=== PATIENT | female | born 1970 | race Caucasian/White ===

== ENCOUNTER 2016-09-08 18:54 | Emergency (ER) | payer MEDICAID ==
[~2016-09-08] VITALS: Ht 162.6 cm; Wt 65.8 kg
[~2016-09-08 18:54] MED LIST: ACTOS15 MG; FERROUS SULFAT324 M2; GLIPIZIDE10 M2; GLUCAPHAGE PO; HUMALOG100 UNITS/ SUBQ; INSULIN; [UNRECOGNIZED DRUG - REMARK]
[2016-09-08 19:21] VITALS: BP 128/70
[2016-09-08] MEDS ORDERED: NOVOLOG100 U/ML SUBQ (19:31)
--- NOTE | 2016-09-08 19:36 | NUR ---
PATIENT AMBULATED TO BED 5.
--- NOTE | 2016-09-08 19:54 | NUR ---
PATIENT PRESENTS TO ED WITH BL EAR PAIN, SORE THROAT, AND HEADACHE FOR THE PAST WEEK . PT STATES SHE WAS GIVEN AMOXICILLIN THAT SHE STARTED TAKING SINCE LAST WEDNESDAY AND TOOK MOTRIN TODAY AT 1300 WHICH LEFT SYMPTOMS UNRELIEVED. PT HAS HX OF DMI AND IS INSULIN DEPENDENT . DENIES N/V/D; SKIN IS PINK/WARM/DRY; AAOX4 WITH EVEN AND STEADY GAIT; LUNGS CLEAR BL; HR EVEN AND REGULAR; PT DENIES ANY FEVER, CP OR SOB AT THIS TIME; PATIENT STATES PAIN OF 8/10 AT THIS TIME; VSS; PATIENT POSITIONED FOR COMFORT; HOB ELEVATED; BEDRAILS UP X2; BED DOWN. ER MD MADE AWARE OF PT STATUS.
--- NOTE | 2016-09-08 20:12 | NUR ---
Patient being evaluated by physician at bedside.
[2016-09-08] MEDS ORDERED: NACL 0.9% 1,000 ML IV ONE (20:35)
[2016-09-08 22:15] VITALS: BP 128/70
--- NOTE | 2016-09-08 22:16 | NUR ---
Patient discharged with v/s stable. Written and verbal after care instructions given and explained. Patient alert, oriented and verbalized understanding of instructions. Ambulatory with steady gait. All questions addressed prior to discharge. ID band removed. Patient advised to follow up with PMD. Rx of TYLENOL AND AURALGAN OTIC SOLUTION given. Patient educated on indication of medication including possible reaction and side effects. Opportunity to ask questions provided and answered.
== END 2016-09-08 22:16 | disposition home or self-care (01) ==
LOC: MED 18:54
PROC: 4A02X4Z Measurement of Cardiac Electrical Activity, External Approach (ICD-10-PCS; principal; 2016-09-08)
DX: J11.1 Influenza due to unidentified influenza virus with other respiratory manifestations (principal); H92.03 Otalgia, bilateral; R03.0 Elevated blood-pressure reading, without diagnosis of hypertension; E11.8 Type 2 diabetes mellitus with unspecified complications; Z79.4 Long term (current) use of insulin; Z32.02 Encounter for pregnancy test, result negative

== ENCOUNTER 2017-01-20 12:05 | Emergency (ER) | payer MEDICAID ==
[~2017-01-20] VITALS: Ht 162.6 cm; Wt 78.9 kg
[~2017-01-20 12:05] MED LIST changes: -ACTOS15 MG; -FERROUS SULFAT324 M2; -GLIPIZIDE10 M2; -GLUCAPHAGE PO; +HUM SUBQ; -HUMALOG100 UNITS/ SUBQ; +INSU100S45 SUBQ; -INSULIN; -[UNRECOGNIZED DRUG - REMARK]
[2017-01-20 12:49] VITALS: BP 118/60
--- NOTE | 2017-01-20 18:22 | NUR ---
Dr. Zavaleta evaluating patient.
--- NOTE | 2017-01-20 18:27 | NUR ---
PATIENT IS A 46 YO FEMALE BIB SELF FOR ABDOMINAL PAIN WITH NAUSEA, AWAKE AND ALERT ABLE TO AMBULATE.
[2017-01-20 18:45] VITALS: BP 118/60
--- NOTE | 2017-01-20 18:46 | NUR ---
Patient discharged with v/s stable. Written and verbal after care instructions given and explained. Patient alert, oriented and verbalized understanding of instructions. Ambulatory with steady gait. All questions addressed prior to discharge. ID band removed. Patient advised to follow up with PMD. Rx of CIPRO AND TRAMADOL given. Patient educated on indication of medication including possible reaction and side effects. Opportunity to ask questions provided and answered.
== END 2017-01-20 18:46 | disposition home or self-care (01) ==
LOC: MED 12:05
DX: R19.7 Diarrhea, unspecified (principal); E11.9 Type 2 diabetes mellitus without complications
CPT/HCPCS: 99283

== ENCOUNTER 2017-07-18 08:20 | Emergency (ER) | payer MEDICAID ==
[~2017-07-18] VITALS: Ht 157.5 cm; Wt 70.1 kg
[2017-07-18 08:28] VITALS: BP 139/81
--- NOTE | 2017-07-18 08:28 | NUR ---
Patient ambulated to bed 11 with family. RN evaluating patient at bedside.
--- NOTE | 2017-07-18 08:30 | NUR ---
Dr. Bae evaluating patient at bedside.
[2017-07-18] MEDS ORDERED: metroNIDAZOLE 500 MG/NS PREMIX 100 ML IV STA (08:38)
[2017-07-18] MEDS ORDERED: NACL 0.9% 1,000 ML IV SCH (08:38)
[2017-07-18] MEDS ORDERED: DIPHENOXYLATE /ATROPINE 2.5 MG TAB PO ONE (08:40)
[2017-07-18] MEDS ORDERED: KETOROLAC 30 MG/ML VIAL IVP ONE (08:40)
[2017-07-18] MEDS ORDERED: ONDANSETRON 4 MG/2 ML VIAL IVP ONE (08:40)
[2017-07-18] MEDS ORDERED: MORPHINE SULFATE 2 MG/ML SYR IVP ONE (08:40)
--- NOTE | 2017-07-18 08:42 | NUR ---
PATIENT PRESENTS TO ED WITH C/O DIARRHEA X 1 WK WITH ABDOMINAL PAIN 8/10; BLACK LOOSE STOOLS; DENIES N/V;HX OF DM;SKIN IS PINK/WARM/DRY; AAOX4 WITH EVEN AND STEADY GAIT; LUNGS CLEAR BL; HR EVEN AND REGULAR; PT DENIES ANY FEVER, CP, SOB, OR COUGH AT THIS TIME; PATIENT STATES PAIN OF 8/10 AT THIS TIME;PATIENT POSITIONED FOR COMFORT; HOB ELEVATED; BEDRAILS UP X2; BED DOWN.ALL MONITORS IN PLACED. ER MD MADE AWARE OF PT STATUS.
[2017-07-18 09:04] LABS: HEMATOCRIT 33.1 % (36-48); HEMOGLOBIN 10.2 g/dL (12.0-16.0); MEAN CORPUSCULAR HEMOGLOBIN 21 pg (27-31); MEAN CORPUSCULAR HGB CONC 31 g/dL (33-37); MEAN CORPUSCULAR VOLUME 68 fL (80-94); PLATELET COUNT (AUTO) 317 K/uL (140-450); RED BLOOD CELL COUNT(AUTO) 4.86 MIL/uL (4.20-5.40); RED CELL DISTRIBUTION WIDTH 16.6 % (11.6-13.7); WHITE BLOOD COUNT (AUTO) 6.5 K/uL (4.8-10.8)
--- NOTE | 2017-07-18 09:06 | NUR ---
PT VERBALIZES RELIEF FROM PAIN;5/10 PAIN SCALE;NO FACIAL GRIMMACING NOTED;WILL CONTINUE TO MONITOR.
[2017-07-18 09:20] LABS: ALBUMIN 3.9 g/dL (3.4-5.0); ANION GAP 7.6 (8-16); POTASSIUM 3.6 mmol/L (3.5-5.1); TOTAL BILIRUBIN 0.4 mg/dL (0.0-1.0)
[2017-07-18 09:23] LABS: BASOPHILS % (MANUAL) 0 % (0-2); CREATININE 0.6 mg/dL (0.6-1.3); EOSINOPHILS % (MANUAL) 6 % (0-4); LYMPHOCYTES % (MANUAL) 24 % (20-46); MONOCYTES % (MANUAL) 4 % (5-12)
[2017-07-18 09:26] LABS: BILIRUBIN,URINE NEGATIVE (NEGATIVE); BLOOD, URINE TRACE-I (NEGATIVE); COLOR,URINE YELLOW (YELLOW); LEUKOCYTE ESTERASE ,URINE TRACE (NEGATIVE); NITRITE, URINE NEGATIVE (NEGATIVE); PH,URINE 5.5 (5.0-9.0); UGLUCOSE 1+ (NEGATIVE)
--- NOTE | 2017-07-18 09:27 | NUR ---
PT CAN'T REMEMBER THE NAME AND DOSAGE OF INSULIN THAT SHE IS TAKING
[2017-07-18 09:30] LABS: APPEARANCE,URINE SLIGHTLY HAZY (CLEAR)
[2017-07-18] MEDS ORDERED: NACL 0.9% 1,000 ML IV ONE (09:30)
[2017-07-18 09:41] LABS: RBC,URINE 0-5 (RARE) /HPF (0-5); YEAST,URINE Few /HPF (None Seen)
--- NOTE | 2017-07-18 09:58 | NUR ---
AAO PT BACK FROM CT, NO ACUTE DISTRESS NOTED, RESTING COMFORTABLY, PLACED BACK ON MONITOR, AWAITING ADMITTING ORDERS, WILL CONTINUE TO MONITOR
--- NOTE | 2017-07-18 10:36 | NUR ---
awaiting for bed assignment for adm.
--- NOTE | 2017-07-18 10:44 | NUR ---
Dr. Marino evaluating patient at bedside.
--- NOTE | 2017-07-18 11:00 | NUR ---
Patient does not wish to proceed with medical care recommended by DR MEDRANO. Patient given information related to possible complications, up to and including , which could occur as a result of leaving hospital at this time. Patient verbalizes understanding of risks involved leaving against medical advice. Patient has signed AMA form.
[2017-07-18 11:05] VITALS: BP 134/59
--- NOTE | 2017-07-18 11:05 | NUR ---
Patient discharged with v/s stable. Written and verbal after care instructions given and explained. Patient alert, oriented and verbalized understanding of instructions. Ambulatory with steady gait. All questions addressed prior to discharge. ID band removed. Patient advised to follow up with PMD. Rx of IMODIUM given. Patient educated on indication of medication including possible reaction and side effects. Opportunity to ask questions provided and answered.
== END 2017-07-18 11:05 | disposition home or self-care (01) ==
LOC: MED 08:20
DX: E87.1 Hypo-osmolality and hyponatremia (principal); E86.0 Dehydration; R19.7 Diarrhea, unspecified; E11.9 Type 2 diabetes mellitus without complications; Z79.4 Long term (current) use of insulin
CPT/HCPCS: 36415; 74176; 80053; 81001; 81025; 82150; 82948; 83690; 84703; 85025; 87086; 96361; 96365; 96375; 99285; J1885; J2270; J2405; J3490; J7030

== ENCOUNTER 2017-10-15 14:13 | Emergency (ER) | payer MEDICAID ==
[~2017-10-15] VITALS: Ht 162.6 cm; Wt 68.2 kg
[2017-10-15 14:17] VITALS: BP 117/76
--- NOTE | 2017-10-15 14:26 | NUR ---
PT COMES TO ER WITH C/O COUGHING, THROAT AND INTERMITTENT CHEST WALL PAIN MORE WITH DEEP COUGH. DENIES ANY SOB, SKIN W/D/I. DENIES ANY ABD PAIN. RESP EVEN AND UNLABORED, IN NAD. DENIES ANY N/V/D.
--- NOTE | 2017-10-15 14:46 | NUR ---
DR CLARKE AT CHAIRSIDE FOR EXAM
[2017-10-15] MEDS ORDERED: IPRATROPIUM 0.02% 0.5 MG/2.5 ML NEBU INH ONE (15:25)
[2017-10-15] MEDS ORDERED: ALBUTEROL 0.083% 2.5 MG/3 ML NEBU INH ONE (15:25)
[2017-10-15 16:14] VITALS: BP 132/64
--- NOTE | 2017-10-15 16:15 | NUR ---
Patient discharged with v/s stable. Written and verbal after care instructions given and explained. Patient alert, oriented and verbalized understanding of instructions. Ambulatory with steady gait. All questions addressed prior to discharge. ID band removed. Patient advised to follow up with PMD. Rx of ALBTUEROL,ZITHROMAX,ROBITUSIN. given. Patient educated on indication of medication including possible reaction and side effects. Opportunity to ask questions provided and answered.
== END 2017-10-15 16:15 | disposition home or self-care (01) ==
LOC: MED 14:13
DX: J40 Bronchitis, not specified as acute or chronic (principal); E11.9 Type 2 diabetes mellitus without complications
CPT/HCPCS: 94640; 99283; J7613; J7644

== ENCOUNTER 2017-12-25 18:10 | Emergency (ER) | payer MEDICAID ==
[~2017-12-25] VITALS: Ht 157.5 cm; Wt 72.1 kg
[2017-12-25 18:18] VITALS: BP 124/78
[2017-12-25] MEDS ORDERED: DICYCLOMINE HCL LIQUID 20 MG, ALUMINUM HYD/MAG/SIMETHICONE 30 ML, LIDOCAINE VISCOUS 2% ... PO ONE ×3 (19:40)
[2017-12-25 20:25] LABS: ANION GAP 10.8 (8-16); CARBON DIOXIDE 25.2 mmol/L (21-32); CREATININE 0.6 mg/dL (0.6-1.3)
[2017-12-25 20:31] LABS: ALBUMIN 3.1 g/dL (3.4-5.0); TOTAL BILIRUBIN 0.2 mg/dL (0.0-1.0)
[2017-12-25 20:52] VITALS: BP 125/86
== END 2017-12-25 20:52 | disposition home or self-care (01) ==
LOC: MED 18:10
DX: R10.9 Unspecified abdominal pain (principal); E11.9 Type 2 diabetes mellitus without complications; Z79.4 Long term (current) use of insulin
CPT/HCPCS: 36415; 80053; 81002; 83690; 99284

== ENCOUNTER 2018-04-16 05:04 | Emergency (ER) | payer MEDICAID ==
[~2018-04-16] VITALS: Ht 157.5 cm; Wt 70.3 kg
[2018-04-16 05:10] VITALS: BP 111/73
--- NOTE | 2018-04-16 05:10 | NUR ---
TO BED # 4 AMBULATORY, REPORT GIVEN TO VONNIE RN
--- NOTE | 2018-04-16 05:15 | NUR ---
PATIENT IS A 47 Y/O FEMALE WHO PRESENTS TO THE ED C/O COUGH. PT STATES THAT IT HAS BEEN GOING ON X1 WEEK. PT REPORTS 7/10 ACHING CHEST PAIN THAT DOES NOT RADIATE. PT DENIES CP, SOB, N/V/D. PT AWAKE AND ALERT, RR EVEN/UNLABORED. PT REPOSITIONED FOR COMFORT, BED IN LOWEST POSITION. ER MD DR. GARZA NOTIFIED. WILL CONTINUE TO MONITOR.
[2018-04-16] MEDS ORDERED: KETOROLAC 60 MG/2 ML VIAL IM ONE (05:25)
[2018-04-16 05:40] VITALS: BP 119/75
--- NOTE | 2018-04-16 05:40 | NUR ---
Patient discharged with v/s stable. Written and verbal after care instructions given and explained. Patient alert, oriented and verbalized understanding of instructions. Ambulatory with steady gait. All questions addressed prior to discharge. ID band removed. Patient advised to follow up with PMD. Rx of PREDNISONE 20MG AND MOTRIN 800MG given. Patient educated on indication of medication including possible reaction and side effects. Opportunity to ask questions provided and answered.
== END 2018-04-16 05:40 | disposition home or self-care (01) ==
LOC: MED 05:04
DX: R07.89 Other chest pain (principal); R05 Cough; E11.8 Type 2 diabetes mellitus with unspecified complications; Z79.4 Long term (current) use of insulin
CPT/HCPCS: 96372; 99283; J1885

== ENCOUNTER 2018-11-07 15:45 | Emergency (ER) | payer MEDICAID ==
[~2018-11-07] VITALS: Ht 160 cm; Wt 74.5 kg
[2018-11-07 15:55] VITALS: BP 133/77
--- NOTE | 2018-11-07 16:21 | NUR ---
PT TO ER BED 5
--- NOTE | 2018-11-07 16:25 | NUR ---
48 Y F BIB SON WITH C/O NON RADIATING EPIGASTRIC PAIN 5/10 X 3 DAYS WITH CHILLS AND DIZZINESS. PER PT SHE WAS DX WITH H. PYLORI A MONTH AGO AND CAN NOT REMEMBER HER PRESCRIBED MEDICATION. BOWEL SOUNDS ACTIVE IN ALL 4 QUADRANTS. LAST BM THIS MORNING. DENIES CONSTIPATION OR DIAHRREA. VSS AT THIS TIME. AA0X4. BED IS DOWN, LOCKED, BED RAIL X 1, ERMD NOTIFIED. DENIES VOMITING HX; H. PYLORI RX; ?
[2018-11-07 16:34] LABS: BASOPHILS # (AUTO) 0.1 K/uL (0.00-0.22); EOSINOPHILS # (AUTO) 0.2 K/uL (0-0.4); EOSINOPHILS % (AUTO) 2.8 % (0.0-4.0); HEMATOCRIT 31.6 % (36-48); LYMPHOCYTES # (AUTO) 1.6 K/uL (2.5-16.5); LYMPHOCYTES % (AUTO) 20.1 % (20.5-51.1); MEAN CORPUSCULAR HEMOGLOBIN 22 pg (27-31); MEAN CORPUSCULAR HGB CONC 32 g/dL (33-37); MEAN CORPUSCULAR VOLUME 69.5 fL (80-94); MONOCYTES # (AUTO) 0.4 K/uL (0.8-1.0); MONOCYTES % (AUTO) 5.4 % (1.7-9.3); NEUTROPHILS # (AUTO) 5.8 K/uL (1.8-7.7); NEUTROPHILS % (AUTO) 70.7 % (42.2-75.2); PLATELET COUNT (AUTO) 329 K/uL (140-450); RED BLOOD CELL COUNT(AUTO) 4.55 MIL/uL (4.20-5.40); RED CELL DISTRIBUTION WIDTH 17.5 % (11.6-13.7); WHITE BLOOD COUNT (AUTO) 8.2 K/uL (4.8-10.8)
[2018-11-07 16:38] LABS: APPEARANCE,URINE CLEAR (CLEAR); BILIRUBIN,URINE NEGATIVE (NEGATIVE); BLOOD, URINE 1+ (NEGATIVE); COLOR,URINE YELLOW (YELLOW); LEUKOCYTE ESTERASE ,URINE TRACE (NEGATIVE); NITRITE, URINE NEGATIVE (NEGATIVE); UGLUCOSE NEGATIVE (NEGATIVE)
[2018-11-07 16:44] LABS: WBC,URINE 0-5 /HPF (0-5)
--- NOTE | 2018-11-07 17:03 | NUR ---
Dr. Bae evaluating patient at bedside.
[2018-11-07 17:04] LABS: ANION GAP 12.3 (8-16); CARBON DIOXIDE 26.5 mmol/L (21-32); CREATININE 0.5 mg/dL (0.6-1.3); POTASSIUM 3.8 mmol/L (3.5-5.1)
[2018-11-07 17:06] LABS: ALBUMIN 3.3 g/dL (3.4-5.0); TOTAL BILIRUBIN 0.5 mg/dL (0.0-1.0)
[2018-11-07] MEDS ORDERED: NACL 0.9% 1,000 ML IV ONE (17:20)
[2018-11-07] MEDS ORDERED: METOCLOPRAMIDE 10 MG/2 ML INJ VIAL IVP ONE (17:20)
[2018-11-07] MEDS ORDERED: FAMOTIDINE 20 MG/2 ML VIAL IVP ONE (17:20)
[2018-11-07] MEDS ORDERED: NACL 0.9% 1,000 ML IV SCH (17:20)
[2018-11-07] MEDS ORDERED: KETOROLAC 30 MG/ML VIAL IVP ONE (17:20)
[2018-11-07 17:44] LABS: MAGNESIUM 1.7 mg/dL (1.8-2.4)
[2018-11-07 17:45] LABS: AMYLASE 37 U/L (25-115); LIPASE 109 U/L (73-393)
--- NOTE | 2018-11-07 17:46 | NUR ---
US AT BEDSIDE
--- NOTE | 2018-11-07 18:00 | NUR ---
PT BEING TAKEN TO CT
[2018-11-07 19:19] VITALS: BP 132/75
--- NOTE | 2018-11-07 19:19 | NUR ---
Patient discharged with v/s stable. Written and verbal after care instructions given and explained. Patient alert, oriented and verbalized understanding of instructions. Ambulatory with steady gait. All questions addressed prior to discharge. ID band removed. Patient advised to follow up with PMD. Rx of pepcid, protonix, reglan given. Patient educated on indication of medication including possible reaction and side effects. Opportunity to ask questions provided and answered.
== END 2018-11-07 19:19 | disposition home or self-care (01) ==
LOC: MED 15:45
DX: R10.13 Epigastric pain (principal); R42 Dizziness and giddiness; B96.81 Helicobacter pylori [H. pylori] as the cause of diseases classified elsewhere
CPT/HCPCS: 36415; 74176; 76705; 80053; 81001; 81025; 82150; 82977; 83690; 83735; 85025; 96361; 96374; 96375; 99284; J1885; J2765; J3490; J7030; Q0092

== ENCOUNTER 2019-03-03 10:52 | Emergency (ER) | payer MEDICAID ==
[~2019-03-03] VITALS: Ht 160 cm; Wt 73.9 kg
[2019-03-03 10:56] VITALS: BP 110/63
--- NOTE | 2019-03-03 11:02 | NUR ---
PT AMBULATED TO ER BED 07
--- NOTE | 2019-03-03 11:20 | NUR ---
C/O EPIGASTRIC PAIN 03/18 X1 DAY. PT REPORTS NAUSEA, DENIES VOMITING/FEVER/DIARRHEA. PER PT, PAIN GETS WORSE WITH EATING OR DRINKING . PT CONNECTED TO MONITOR. GAVE BLANKET, STATES HAS CHILLS AT THIS TIME. ER MD TO SEE THE PT. AT THE BEDSIDE. WILL CONTIUE TO MONITOR PT. HX: DM RX: INSULIN
[2019-03-03] MEDS ORDERED: KETOROLAC 60 MG/2 ML VIAL IM ONE (11:35)
[2019-03-03] MEDS ORDERED: FAMOTIDINE 20 MG TAB PO ONE (11:35)
[2019-03-03] MEDS ORDERED: ONDANSETRON 4 MG ODT PO ONE (11:35)
--- NOTE | 2019-03-03 11:41 | NUR ---
US AT BEDSIDE FOR INTERVENTION.
[2019-03-03 11:46] LABS: APPEARANCE,URINE SL CLOUDY (CLEAR); BILIRUBIN,URINE NEGATIVE (NEGATIVE); BLOOD, URINE TRACE-I (NEGATIVE); COLOR,URINE YELLOW (YELLOW); LEUKOCYTE ESTERASE ,URINE 2+ (NEGATIVE); NITRITE, URINE NEGATIVE (NEGATIVE); PH,URINE 5.5 (5.0-9.0); UGLUCOSE NEGATIVE (NEGATIVE)
--- NOTE | 2019-03-03 11:49 | NUR ---
US AND SALESPERSON TRAILERS AND MOTOR HOMES AT THE BEDSIDE. GAVE MEDS ORDERED TO PT. WILL CONTINUE TO MONIOTR PT.
[2019-03-03 11:57] LABS: BASOPHILS # (AUTO) 0.1 K/uL (0.00-0.22); EOSINOPHILS # (AUTO) 0.1 K/uL (0-0.4); EOSINOPHILS % (AUTO) 2.2 % (0.0-4.0); HEMATOCRIT 27.9 % (36-48); HEMOGLOBIN 8.6 g/dL (12.0-16.0); LYMPHOCYTES % (AUTO) 29.7 % (20.5-51.1); MEAN CORPUSCULAR HEMOGLOBIN 19 pg (27-31); MEAN CORPUSCULAR HGB CONC 31 g/dL (33-37); MEAN CORPUSCULAR VOLUME 62.7 fL (80-94); MONOCYTES # (AUTO) 0.5 K/uL (0.8-1.0); MONOCYTES % (AUTO) 7.8 % (1.7-9.3); NEUTROPHILS # (AUTO) 4.1 K/uL (1.8-7.7); NEUTROPHILS % (AUTO) 59.3 % (42.2-75.2); PLATELET COUNT (AUTO) 349 K/uL (140-450); RED BLOOD CELL COUNT(AUTO) 4.46 MIL/uL (4.20-5.40); RED CELL DISTRIBUTION WIDTH 18.6 % (11.6-13.7); WHITE BLOOD COUNT (AUTO) 6.8 K/uL (4.8-10.8)
[2019-03-03 12:03] LABS: RBC,URINE 0-5 /HPF (0-5)
[2019-03-03 12:04] LABS: ANION GAP 10.2 (8-16); CARBON DIOXIDE 26.4 mmol/L (21-32); CREATININE 0.6 mg/dL (0.6-1.3); POTASSIUM 3.6 mmol/L (3.5-5.1)
[2019-03-03 12:04] LABS: WBC,URINE 16-25 (MOD) /HPF (0-5)
[2019-03-03 12:10] LABS: ALBUMIN 3.4 g/dL (3.4-5.0); TOTAL BILIRUBIN 0.5 mg/dL (0.0-1.0)
--- NOTE | 2019-03-03 12:10 | NUR ---
PT AMBULATED TO RESTROOM
--- NOTE | 2019-03-03 12:24 | NUR ---
CONNECTED PT BACK TO MONITOR. RESTING COMFORTABLY. DENIES NAUSEA. PAIN 4/10 AT THIS TIME. WILL CONTINUE TO MONITOR PT.
[2019-03-03 13:15] VITALS: BP 114/63
--- NOTE | 2019-03-03 13:15 | NUR ---
Patient discharged with v/s stable. Written and verbal after care instructions given and explained. Patient alert, oriented and verbalized understanding of instructions. Ambulatory with steady gait. All questions addressed prior to discharge. ID band removed. Patient advised to follow up with PMD. Rx of OMEPRAZOLE, ZOFRAN, CEPHALEXIN given. Patient educated on indication of medication including possible reaction and side effects. Opportunity to ask questions provided and answered.
== END 2019-03-03 13:15 | disposition home or self-care (01) ==
LOC: MED 10:52
DX: K29.70 Gastritis, unspecified, without bleeding (principal); N39.0 Urinary tract infection, site not specified; E11.9 Type 2 diabetes mellitus without complications; D64.9 Anemia, unspecified; Z79.4 Long term (current) use of insulin; Z98.890 Other specified postprocedural states
CPT/HCPCS: 36415; 76705; 80053; 81001; 81025; 82948; 83690; 85025; 87086; 96372; 99284; J1885; Q0092; Q0162

== ENCOUNTER 2019-10-03 00:23 | Emergency (ER) | payer MEDICAID ==
[~2019-10-03] VITALS: Ht 160 cm; Wt 71.7 kg
[2019-10-03 00:25] VITALS: BP 131/76
--- NOTE | 2019-10-03 00:25 | NUR ---
TO BED # 01 AMBULATORY
--- NOTE | 2019-10-03 00:38 | NUR ---
48 YEAR OLD FEMALE COMPLAINS OF LEFT KNEE PAIN SINCE YESTERDAY. PATIENT DENIES TRAUMA. PATIENT AOX4, BREATHING EVEN AND UNLABORED, SKIN WARM AND DRY. BED IN LOWEST POSITION, LOCKED, BED RAIL UPX1. SON AT BEDSIDE. TRANSLATION USED. PMH - DM2 ALLERGIES - NKA
--- NOTE | 2019-10-03 02:31 | NUR ---
PATIENT ALERT AND AWAKE, BREATHING EVEN AND UNLABORED
[2019-10-03 03:45] VITALS: BP 131/76
--- NOTE | 2019-10-03 03:45 | NUR ---
Patient discharged with v/s stable. Written and verbal after care instructions about knee pain given and explained. Patient verbalized understanding. Ambulatory with steady gait. All questions addressed prior to discharge. Advised to follow up with PMD.
== END 2019-10-03 03:45 | disposition home or self-care (01) ==
LOC: MED 00:23
DX: M25.562 Pain in left knee (principal); E11.9 Type 2 diabetes mellitus without complications; Z79.4 Long term (current) use of insulin
CPT/HCPCS: 73562; 99283; Q0092

== ENCOUNTER 2021-09-30 10:39 | Emergency (ER) | payer MEDICAID ==
[~2021-09-30] VITALS: Ht 157.5 cm; Wt 70.8 kg
[2021-09-30 10:45] VITALS: BP 141/72
--- NOTE | 2021-09-30 10:53 | NUR ---
50 Y/O FEMALE C/O LEFT EAR PAIN 8/10 S/P HAVING AN ONION THROWN AT HER WORK THIS MORNING. PT STATES +TINNITUS, LEFT EYE PAIN WITH TWITCHING, LEFT FACIAL PAIN, DENIES N/V, DENIES DIZZINESS, DENIES FEVER/CHILLS. PMH: RAYMUNDO MENENDEZ
--- NOTE | 2021-09-30 11:15 | NUR ---
DR GARZA EVALUATING PATIENT AT BEDSIDE.
[2021-09-30] MEDS: KETOROLAC 60 MG/2 ML VIAL IM ONE (11:28)
[2021-09-30] MEDS ORDERED: IBUP-2213 PO (11:39)
[2021-09-30 11:55] VITALS: BP 141/72
== END 2021-09-30 11:55 | disposition home or self-care (01) ==
LOC: MED 10:39
DX: H92.02 Otalgia, left ear (principal); E11.9 Type 2 diabetes mellitus without complications; Z79.4 Long term (current) use of insulin; Z98.890 Other specified postprocedural states
CPT/HCPCS: 96372; 99283; J1885